=== PATIENT | male | born 1955 | race Caucasian/White ===

== ENCOUNTER 2019-12-29 12:01 | Observation (INO) ==
[2019-12-29] MEDS ORDERED: Aspirin 81 MG TAB.CHEW PO ONE (12:24)
[2019-12-29 12:37] LABS: Basophils # 0.1 K/mcL (0.0-0.2); Eosinophils # 0.2 K/mcL (0.0-0.6); Hemoglobin 15.7 g/dL (12.9-16.9); Immature Granulocytes % 0.2 % (0-4); Lymphocytes # 1.7 K/mcL (0.6-4.6); Lymphocytes % 29.2 %; Mean Corpuscular HGB Conc 34.1 g/dL (31.6-35.5); Mean Corpuscular Hemoglobin 34.2 pg (28.0-33.3); Mean Corpuscular Volume 100.2 fL (83.0-100.0); Mean Platelet Volume 9.3 fL (9.4-12.4); Monocytes # 0.6 K/mcL (0.0-1.3); Monocytes % 9.6 %; Neutrophils # 3.2 K/mcL (1.6-8.9); Platelet Count 320 K/mcL (140-400); Red Blood Count 4.59 M/mcL (4.19-5.50); Red Cell Distribution Width 12.4 % (11.5-14.5); White Blood Count 5.7 K/mcL (4.3-11.1)
[2019-12-29 12:46] LABS: Prothrombin Time 11.6 Seconds (9.4-12.1)
[2019-12-29] MEDS ORDERED: *HR* Heparin 5,000 UNIT/ML VIAL IVP PRN ×2 (12:59)
[2019-12-29] MEDS ORDERED: *HR* Heparin 5,000 UNIT/ML VIAL IVP ONE (12:59)
[2019-12-29 13:01] LABS: Troponin I 0.76 ng/mL (< 0.04)
[2019-12-29 13:24] LABS: Alanine Aminotransferase 28 Units/L (7-52); Albumin 4.2 g/dL (3.5-5.7); Albumin/Globulin Ratio 1.4 (1.1-2.2); Alkaline Phosphatase 74 Units/L (34-104); Aspartate Amino Transferase 19 Units/L (13-39); BUN/Creatinine Ratio 13 (6-26); Bilirubin,Total 0.9 mg/dL (0.3-1.0); Blood Urea Nitrogen 14 mg/dL (8-23); Calcium 9.5 mg/dL (8.6-10.3); Carbon Dioxide 23 mEq/L (23-29); Chloride 106 mEq/L (98-107); Globulin 3.1 g/dL (2.4-3.5); Glucose 117 mg/dL (70-105); Osmolality,Calculated 290 (280-300); Potassium 4.4 mEq/L (3.5-5.1); Sodium 139 mEq/L (136-145); Total Protein 7.3 g/dL (6.4-8.9); eGFR For African Americans > 60 (> 60); eGFR For Non-African Americans > 60 (> 60)
[2019-12-29] MEDS ORDERED: Perflutren Lipid Microsphere 1.3 ML in 0.9 % Sodium Chloride 8.7 ML IVP ONE (13:25)
[2019-12-29 13:31] LABS: Heparin anti-factor XA UFH < 0.04 IU/mL (0.30-0.70)
[2019-12-29 13:32] LABS: Prothrombin Time 11.4 Seconds (9.4-12.1)
[2019-12-29] MEDS ORDERED: Naloxone 0.4 MG/ML INJ IVP PRN (13:39)
[2019-12-29] MEDS ORDERED: Acetaminophen 325 MG TABLET PO PRN (13:39)
[2019-12-29] MEDS ORDERED: Ondansetron 4 MG/2 ML VIAL IVP PRN (13:39)
[2019-12-29] MEDS ORDERED: Nitroglycerin 0.4 MG TAB.SUBL SL PRN (13:41)
[2019-12-29] MEDS: Heparin 25,000 UNIT/250 ML D5W 25,000 UNIT/250 ML IV.SOLN IVC SCH ×2 (13:41→17:00)
[2019-12-29] MEDS ORDERED: Heparin 1,000 UNITS/500 mL 500 ML ONE (13:55)
[2019-12-29] MEDS ORDERED: 0.9 % Sodium Chloride 2,000 ML ONE (13:55)
[2019-12-29] MEDS ORDERED: *HR* Heparin 10,000 UNIT/10 ML VIAL ONE (13:55)
[2019-12-29] MEDS ORDERED: ISOVUE-370 200 ML INFUS..BTL ONE (13:55)
[2019-12-29] MEDS ORDERED: *HR* Midazolam HCl 2 MG/2 ML VIAL ONE (13:55)
[2019-12-29] MEDS ORDERED: Nitroglycerin 1,000 MCG/10 ML VIAL IV ONE (13:56)
[2019-12-29] MEDS: Metoprolol XL (24 HR) Succ 25 MG TAB.ER.24H PO SCH (15:14)
[2019-12-29] MEDS ORDERED: Warfarin perPT PO SCH (18:00)
[2019-12-29] MEDS ORDERED: *HR* Warfarin 5 MG TABLET PO ONE (18:00)
[2019-12-30 01:08] LABS: Basophils # 0.1 K/mcL (0.0-0.2); Basophils % 0.7 %; Eosinophils # 0.3 K/mcL (0.0-0.6); Eosinophils % 3.8 %; Hematocrit 46.7 % (37.5-50.1); Hemoglobin 15.6 g/dL (12.9-16.9); Immature Granulocytes % 0.3 % (0-4); Lymphocytes # 2.9 K/mcL (0.6-4.6); Lymphocytes % 42.5 %; Mean Corpuscular HGB Conc 33.4 g/dL (31.6-35.5); Mean Corpuscular Hemoglobin 33.1 pg (28.0-33.3); Mean Corpuscular Volume 99.2 fL (83.0-100.0); Mean Platelet Volume 9.6 fL (9.4-12.4); Monocytes # 0.7 K/mcL (0.0-1.3); Monocytes % 9.8 %; Neutrophils # 2.9 K/mcL (1.6-8.9); Platelet Count 337 K/mcL (140-400); Red Blood Count 4.71 M/mcL (4.19-5.50); Red Cell Distribution Width 12.5 % (11.5-14.5); Segmented Neutrophils % 42.9 %; White Blood Count 6.8 K/mcL (4.3-11.1)
[2019-12-30 01:20] LABS: INR 1.1; Prothrombin Time 12.4 Seconds (9.4-12.1)
[2019-12-30 01:33] LABS: BUN/Creatinine Ratio 14 (6-26); Blood Urea Nitrogen 14 mg/dL (8-23); Calcium 9.3 mg/dL (8.6-10.3); Carbon Dioxide 25 mEq/L (23-29); Chloride 105 mEq/L (98-107); Chol/HDL Ratio 3.8 (0-4.9); Cholesterol 139 mg/dL (< 200); Glucose 109 mg/dL (70-105); HDL Cholesterol 37 mg/dL (40-59); LDL Cholesterol,Calculated 81 mg/dL (0-99); Magnesium 2.3 mg/dL (1.6-2.6); Osmolality,Calculated 287 (280-300); Phosphorous 3.6 mg/dL (2.7-4.5); Potassium 4.2 mEq/L (3.5-5.1); Sodium 138 mEq/L (136-145); Triglycerides 106 mg/dL (< 150); eGFR For African Americans > 60 (> 60); eGFR For Non-African Americans > 60 (> 60)
[2019-12-30] MEDS ORDERED: Aspirin Enteric Coated 81 MG Tablet PO SCH (09:00)
[2019-12-30] MEDS: Metoprolol XL (24 HR) Succ 25 MG TAB.ER.24H PO SCH (09:06)
[2019-12-30] MEDS ORDERED: *HR* Enoxaparin 100 MG/ML SYRINGE SQ ONE (11:27)
[2019-12-30 12:02] VITALS: BP 137/95
[2019-12-30] MEDS ORDERED: *HR* Warfarin 5 MG TABLET PO ONE (18:00)
== END 2019-12-30 12:49 | disposition home or self-care (01) ==
LOC: EMEROOARM 12:01 → 2ANU 12:01
PROVIDERS: ADMIT Internal Medicine; ATTEND Internal Medicine

== ENCOUNTER 2020-01-08 16:59 | Inpatient (IN) ==
[2020-01-08] MEDS ORDERED: Aspirin 81 MG TAB.CHEW PO ONE (17:14)
[2020-01-08] MEDS ORDERED: Nitroglycerin 0.4 MG TAB.SUBL SL PRN (17:14)
[2020-01-08 17:42] LABS: Basophils # 0.1 K/mcL (0.0-0.2); Basophils % 0.6 %; Eosinophils # 0.2 K/mcL (0.0-0.6); Eosinophils % 2.6 %; Hematocrit 48.9 % (37.5-50.1); Hemoglobin 16.6 g/dL (12.9-16.9); Immature Granulocytes % 0.4 % (0-4); Lymphocytes # 2.3 K/mcL (0.6-4.6); Lymphocytes % 28.3 %; Mean Corpuscular HGB Conc 33.9 g/dL (31.6-35.5); Mean Corpuscular Hemoglobin 33.9 pg (28.0-33.3); Mean Corpuscular Volume 99.8 fL (83.0-100.0); Mean Platelet Volume 10.2 fL (9.4-12.4); Monocytes # 1.1 K/mcL (0.0-1.3); Monocytes % 14.1 %; Neutrophils # 4.3 K/mcL (1.6-8.9); Platelet Count 167 K/mcL (140-400); Red Cell Distribution Width 12.3 % (11.5-14.5)
[2020-01-08 17:49] LABS: INR 2.4; Prothrombin Time 27.7 Seconds (9.4-12.1)
[2020-01-08 17:52] LABS: Activated Partial Thrombo Time 44.2 Seconds (26.0-36.0)
[2020-01-08 18:03] LABS: BUN/Creatinine Ratio 18 (6-26); Blood Urea Nitrogen 19 mg/dL (8-23); Calcium 9.3 mg/dL (8.6-10.3); Carbon Dioxide 23 mEq/L (23-29); Chloride 105 mEq/L (98-107); Glucose 103 mg/dL (70-105); Osmolality,Calculated 287 (280-300); Potassium 3.8 mEq/L (3.5-5.1); Sodium 137 mEq/L (136-145); eGFR For African Americans > 60 (> 60); eGFR For Non-African Americans > 60 (> 60)
[2020-01-08 18:11] LABS: Troponin I 0.19 ng/mL (< 0.04)
[2020-01-08] MEDS ORDERED: *HR* Heparin 5,000 UNIT/ML VIAL IVP PRN ×2 (18:33)
[2020-01-08] MEDS ORDERED: *HR* Heparin 5,000 UNIT/ML VIAL IVP ONE (18:33)
[2020-01-08] MEDS ORDERED: Heparin 25,000 UNIT/250 ML D5W 25,000 UNIT/250 ML IV.SOLN IVC SCH (18:45)
[2020-01-08] MEDS ORDERED: Naloxone 0.4 MG/ML INJ IVP PRN (18:51)
[2020-01-08 19:24] LABS: Heparin anti-factor XA UFH < 0.04 IU/mL (0.30-0.70)
[2020-01-08 19:25] LABS: INR 2.4; Prothrombin Time 27.5 Seconds (9.4-12.1)
[2020-01-08 19:26] LABS: Hematocrit 45.7 % (37.5-50.1); Hemoglobin 15.4 g/dL (12.9-16.9); Mean Corpuscular HGB Conc 33.7 g/dL (31.6-35.5); Mean Corpuscular Hemoglobin 33.6 pg (28.0-33.3); Mean Corpuscular Volume 99.6 fL (83.0-100.0); Mean Platelet Volume 10.2 fL (9.4-12.4); Platelet Count 155 K/mcL (140-400); Red Blood Count 4.59 M/mcL (4.19-5.50); Red Cell Distribution Width 12.4 % (11.5-14.5); White Blood Count 7.1 K/mcL (4.3-11.1)
[2020-01-08] MEDS ORDERED: *HR* HYDROcodone/Acet 5/325 mg TABLET PO PRN (20:44)
[2020-01-08] MEDS ORDERED: Morphine Sulfate 2 MG/ML SYRINGE IVP PRN (20:45)
[2020-01-09 02:43] LABS: Basophils # 0.1 K/mcL (0.0-0.2); Basophils % 0.8 %; Eosinophils # 0.2 K/mcL (0.0-0.6); Eosinophils % 3.4 %; Hematocrit 44.3 % (37.5-50.1); Hemoglobin 14.9 g/dL (12.9-16.9); Immature Granulocytes % 0.4 % (0-4); Lymphocytes # 2.6 K/mcL (0.6-4.6); Lymphocytes % 36.9 %; Mean Corpuscular HGB Conc 33.6 g/dL (31.6-35.5); Mean Corpuscular Hemoglobin 33.6 pg (28.0-33.3); Mean Corpuscular Volume 99.8 fL (83.0-100.0); Mean Platelet Volume 10.5 fL (9.4-12.4); Monocytes # 0.9 K/mcL (0.0-1.3); Monocytes % 12.4 %; Neutrophils # 3.3 K/mcL (1.6-8.9); Platelet Count 152 K/mcL (140-400); Red Blood Count 4.44 M/mcL (4.19-5.50); Red Cell Distribution Width 12.3 % (11.5-14.5); Segmented Neutrophils % 46.1 %; White Blood Count 7.1 K/mcL (4.3-11.1)
[2020-01-09 02:59] LABS: BUN/Creatinine Ratio 19 (6-26); Blood Urea Nitrogen 19 mg/dL (8-23); Calcium 8.8 mg/dL (8.6-10.3); Carbon Dioxide 21 mEq/L (23-29); Chloride 109 mEq/L (98-107); Glucose 80 mg/dL (70-105); Osmolality,Calculated 287 (280-300); Potassium 3.9 mEq/L (3.5-5.1); Sodium 138 mEq/L (136-145); eGFR For African Americans > 60 (> 60); eGFR For Non-African Americans > 60 (> 60)
[2020-01-09] MEDS: Aspirin Enteric Coated 81 MG Tablet PO SCH (09:30)
[2020-01-09] MEDS: Metoprolol XL (24 HR) Succ 25 MG TAB.ER.24H PO SCH (09:30)
[2020-01-09] MEDS: Spironolactone 25 MG TABLET PO SCH (09:30)
[2020-01-09 09:46] LABS: Chol/HDL Ratio 2.3 (0-4.9)
[2020-01-10 01:38] LABS: Basophils # 0.1 K/mcL (0.0-0.2); Basophils % 0.8 %; Eosinophils # 0.2 K/mcL (0.0-0.6); Eosinophils % 3.7 %; Hematocrit 43.7 % (37.5-50.1); Hemoglobin 14.7 g/dL (12.9-16.9); Immature Granulocytes % 0.2 % (0-4); Lymphocytes # 2.3 K/mcL (0.6-4.6); Lymphocytes % 35.8 %; Mean Corpuscular HGB Conc 33.6 g/dL (31.6-35.5); Mean Corpuscular Hemoglobin 33.8 pg (28.0-33.3); Mean Corpuscular Volume 100.5 fL (83.0-100.0); Monocytes # 0.8 K/mcL (0.0-1.3); Monocytes % 11.8 %; Neutrophils # 3.1 K/mcL (1.6-8.9); Platelet Count 151 K/mcL (140-400); Red Blood Count 4.35 M/mcL (4.19-5.50); Red Cell Distribution Width 12.3 % (11.5-14.5); Segmented Neutrophils % 47.7 %; White Blood Count 6.4 K/mcL (4.3-11.1)
[2020-01-10 01:44] LABS: INR 1.7
[2020-01-10 01:58] LABS: BUN/Creatinine Ratio 17 (6-26); Blood Urea Nitrogen 19 mg/dL (8-23); Calcium 8.6 mg/dL (8.6-10.3); Carbon Dioxide 22 mEq/L (23-29); Chloride 107 mEq/L (98-107); Glucose 125 mg/dL (70-105); Magnesium 2.4 mg/dL (1.6-2.6); Osmolality,Calculated 288 (280-300); Phosphorous 3.1 mg/dL (2.7-4.5); Sodium 137 mEq/L (136-145); eGFR For African Americans > 60 (> 60); eGFR For Non-African Americans > 60 (> 60)
[2020-01-10] MEDS ORDERED: *HR* Heparin 5,000 UNIT/ML VIAL IVP PRN ×2 (08:33)
[2020-01-10] MEDS: Aspirin Enteric Coated 81 MG Tablet PO SCH (09:19)
[2020-01-10] MEDS: Spironolactone 25 MG TABLET PO SCH (09:19)
[2020-01-10] MEDS: Metoprolol XL (24 HR) Succ 25 MG TAB.ER.24H PO SCH (09:19)
[2020-01-10] MEDS: Heparin 25,000 UNIT/250 ML D5W 25,000 UNIT/250 ML IV.SOLN IVC SCH (10:19)
[2020-01-11 00:51] LABS: INR 1.5; Prothrombin Time 16.6 Seconds (9.4-12.1)
[2020-01-11] MEDS: Heparin 25,000 UNIT/250 ML D5W 25,000 UNIT/250 ML IV.SOLN IVC SCH (04:20)
[2020-01-11] MEDS: Metoprolol XL (24 HR) Succ 25 MG TAB.ER.24H PO SCH (08:11)
[2020-01-11] MEDS: Aspirin Enteric Coated 81 MG Tablet PO SCH (08:11)
[2020-01-11] MEDS: Spironolactone 25 MG TABLET PO SCH (08:12)
[2020-01-12] MEDS: Heparin 25,000 UNIT/250 ML D5W 25,000 UNIT/250 ML IV.SOLN IVC SCH ×2 (00:02→23:51)
[2020-01-12 07:31] LABS: INR 1.2; Prothrombin Time 13.5 Seconds (9.4-12.1)
[2020-01-12] MEDS: Metoprolol XL (24 HR) Succ 25 MG TAB.ER.24H PO SCH (07:56)
[2020-01-12] MEDS: Aspirin Enteric Coated 81 MG Tablet PO SCH (07:56)
[2020-01-12] MEDS: Spironolactone 25 MG TABLET PO SCH (07:57)
[2020-01-12] MEDS ORDERED: Heparin 1,000 UNITS/500 mL 500 ML ONE (09:38)
[2020-01-12] MEDS ORDERED: ISOVUE-370 200 ML INFUS..BTL ONE ×2 (09:38→10:51)
[2020-01-12] MEDS ORDERED: *HR* Heparin 10,000 UNIT/10 ML VIAL ONE (09:38)
[2020-01-12] MEDS ORDERED: Nitroglycerin 1,000 MCG/10 ML VIAL IV ONE (09:38)
[2020-01-12] MEDS ORDERED: 0.9 % Sodium Chloride 2,000 ML ONE (09:38)
[2020-01-12] MEDS ORDERED: *HR* Midazolam HCl 2 MG/2 ML VIAL ONE (09:53)
[2020-01-12] MEDS ORDERED: Tirofiban 12.5 MG/250ML 12.5 MG/250 ML BAG ONE (09:54)
[2020-01-12] MEDS ORDERED: *HR* FentaNYL (PF) 100 MCG/2 ML VIAL ONE (09:54)
[2020-01-12] MEDS ORDERED: Warfarin perPT PO PRN (18:00)
[2020-01-12] MEDS ORDERED: *HR* Warfarin 5 MG TABLET PO ONE (18:00)
[2020-01-13 06:28] LABS: INR 1.2; Prothrombin Time 13.8 Seconds (9.4-12.1)
[2020-01-13] MEDS: Metoprolol XL (24 HR) Succ 25 MG TAB.ER.24H PO SCH (10:10)
[2020-01-13] MEDS: Aspirin Enteric Coated 81 MG Tablet PO SCH (10:10)
[2020-01-13] MEDS: Spironolactone 25 MG TABLET PO SCH (10:11)
[2020-01-13 11:05] LABS: BUN/Creatinine Ratio 17 (6-26); Blood Urea Nitrogen 17 mg/dL (8-23); Calcium 9.2 mg/dL (8.6-10.3); Carbon Dioxide 22 mEq/L (23-29); Chloride 105 mEq/L (98-107); Glucose 109 mg/dL (70-105); Osmolality,Calculated 284 (280-300); Potassium 3.9 mEq/L (3.5-5.1); Sodium 136 mEq/L (136-145); eGFR For African Americans > 60 (> 60); eGFR For Non-African Americans > 60 (> 60)
[2020-01-13] MEDS ORDERED: *HR* Enoxaparin 100 MG/ML SYRINGE SQ ONE (11:48)
[2020-01-13] MEDS ORDERED: Heparin 25,000 UNIT/250 ML D5W 25,000 UNIT/250 ML IV.SOLN IVC SCH (11:50)
[2020-01-13 11:52] VITALS: BP 115/82
[2020-01-13] MEDS ORDERED: *HR* Warfarin 7.5 MG TABLET PO ONE (18:00)
== END 2020-01-13 13:36 | disposition home or self-care (01) | DRG 246 ==
LOC: 3BNU 16:59 → EMEROOARM 16:59 → 3BNU 19:52 → SUATTDRO 01-10 08:34
PROVIDERS: ADMIT Internal Medicine; ATTEND Internal Medicine

== ENCOUNTER 2020-01-15 22:36 | Observation (INO) ==
[2020-01-15 23:37] LABS: Basophils % 0.5 %; Eosinophils # 0.4 K/mcL (0.0-0.6); Hemoglobin 14.1 g/dL (12.9-16.9); INR 1.5; Immature Granulocytes % 0.5 % (0-4); Lymphocytes # 2.3 K/mcL (0.6-4.6); Lymphocytes % 30.2 %; Mean Corpuscular HGB Conc 33.6 g/dL (31.6-35.5); Mean Corpuscular Hemoglobin 33.7 pg (28.0-33.3); Mean Corpuscular Volume 100.2 fL (83.0-100.0); Mean Platelet Volume 9.9 fL (9.4-12.4); Monocytes # 0.7 K/mcL (0.0-1.3); Monocytes % 9.3 %; Neutrophils # 4.2 K/mcL (1.6-8.9); Platelet Count 166 K/mcL (140-400); Prothrombin Time 16.5 Seconds (9.4-12.1); Red Blood Count 4.19 M/mcL (4.19-5.50); Red Cell Distribution Width 12.7 % (11.5-14.5); Segmented Neutrophils % 54.5 %; White Blood Count 7.7 K/mcL (4.3-11.1)
[2020-01-15] MEDS ORDERED: Isovue-370 500 ML BOTTLE IVP ONE (23:37)
[2020-01-15 23:39] LABS: Activated Partial Thrombo Time 48.3 Seconds (26.0-36.0)
[2020-01-15 23:49] LABS: BUN/Creatinine Ratio 23 (6-26); Blood Urea Nitrogen 24 mg/dL (8-23); Calcium 9.1 mg/dL (8.6-10.3); Carbon Dioxide 21 mEq/L (23-29); Chloride 106 mEq/L (98-107); Glucose 135 mg/dL (70-105); Osmolality,Calculated 292 (280-300); Potassium 3.9 mEq/L (3.5-5.1); Sodium 138 mEq/L (136-145); eGFR For African Americans > 60 (> 60); eGFR For Non-African Americans > 60 (> 60)
[2020-01-16 00:06] LABS: Troponin I 0.77 ng/mL (< 0.04)
[2020-01-16] MEDS ORDERED: Naloxone 0.4 MG/ML INJ IVP PRN (04:21)
[2020-01-16 05:26] LABS: Hematocrit 41.9 % (37.5-50.1); Hemoglobin 14.4 g/dL (12.9-16.9); Mean Corpuscular HGB Conc 34.4 g/dL (31.6-35.5); Mean Corpuscular Hemoglobin 34.2 pg (28.0-33.3); Mean Corpuscular Volume 99.5 fL (83.0-100.0); Platelet Count 153 K/mcL (140-400); Red Blood Count 4.21 M/mcL (4.19-5.50); Red Cell Distribution Width 12.8 % (11.5-14.5); White Blood Count 8.3 K/mcL (4.3-11.1)
[2020-01-16 05:44] LABS: BUN/Creatinine Ratio 23 (6-26); Blood Urea Nitrogen 21 mg/dL (8-23); Calcium 9.1 mg/dL (8.6-10.3); Carbon Dioxide 19 mEq/L (23-29); Chloride 108 mEq/L (98-107); Glucose 105 mg/dL (70-105); Osmolality,Calculated 287 (280-300); Potassium 4.1 mEq/L (3.5-5.1); Sodium 137 mEq/L (136-145); eGFR For African Americans > 60 (> 60); eGFR For Non-African Americans > 60 (> 60)
[2020-01-16] MEDS: *HR* Enoxaparin 100 MG/ML SYRINGE SQ SCH ×2 (06:10→17:26)
[2020-01-16 06:28] LABS: INR 1.5; Prothrombin Time 16.6 Seconds (9.4-12.1)
[2020-01-16] MEDS: Aspirin Enteric Coated 81 MG Tablet PO SCH (08:53)
[2020-01-16] MEDS: Spironolactone 25 MG TABLET PO SCH (08:54)
[2020-01-16] MEDS: Metoprolol XL (24 HR) Succ 25 MG TAB.ER.24H PO SCH (08:55)
[2020-01-16] MEDS ORDERED: Warfarin perPT PO PRN (18:00)
[2020-01-16] MEDS ORDERED: *HR* Warfarin 7.5 MG TABLET PO ONE (18:00)
[2020-01-17 02:11] LABS: INR 1.6; Prothrombin Time 18.3 Seconds (9.4-12.1)
[2020-01-17] MEDS: *HR* Enoxaparin 100 MG/ML SYRINGE SQ SCH (05:32)
[2020-01-17 08:02] VITALS: BP 114/82
[2020-01-17] MEDS: Aspirin Enteric Coated 81 MG Tablet PO SCH (08:37)
[2020-01-17] MEDS: Metoprolol XL (24 HR) Succ 25 MG TAB.ER.24H PO SCH (08:38)
[2020-01-17] MEDS: Spironolactone 25 MG TABLET PO SCH (08:38)
[2020-01-17 09:02] LABS: Hematocrit 42.2 % (37.5-50.1); Hemoglobin 14.5 g/dL (12.9-16.9)
== END 2020-01-17 11:55 | disposition home or self-care (01) ==
LOC: EMEROOARM 22:36 → 2ANU 22:36 → SUATTDRO 01-16 04:08 → 2ANU 01-16 04:45
PROVIDERS: ADMIT Student in an Organized Health Care Education/Training Program; ATTEND Internal Medicine